=== PATIENT | male | born 1995 ===

== ENCOUNTER 2019-03-13 16:21 | Emergency (ER) | payer OTHER ==
--- NOTE | 2019-03-13 16:35 | EDM.PDOC ---
ED HPI GENERAL MEDICAL PROBLEM - General Chief Complaint: Lower Extremity Injury/Pain Stated Complaint: L LEG INJURY Time Seen by Provider: 03/13/19 16:29 Source of Information: Reports: Patient History Limitations: Reports: No Limitations - History of Present Illness INITIAL COMMENTS - FREE TEXT/NARRATIVE: Patient is unfortunate 24-year-old male who presents emergency Department today with complaint of left leg pain. Patient reports he was in his normal state of health until 3 days ago when he was walking and fell forward onto the ground and he hit his left peng on a 2 x 4. Patient reports he opened his skin at that time and has had bruising and swelling from the site down to his ankle. Patient reports pain is worse with ambulation or palpation improves with rest does not alleviate. Distal neurovascular is intact. Patient's last tetanus shot was last year Left Lower Leg Pain Score (Numeric/FACES): 2 - Related Data Allergies Allergy/AdvReac Type Severity Reaction Status Date / Time No Known Allergies Allergy Verified 03/13/19 16:36 Home Meds: Home Meds cephALEXin [Keflex] 500 mg PO QID #28 cap 03/13/19 [Rx] Review of Systems - Review of Systems Review Of Systems: See Below Constitutional: Denies: Chills, Fever Musculoskeletal: Reports: Leg Pain ED EXAM, GENERAL - Physical Exam Exam: See Below Exam Limited By: No Limitations General Appearance: Alert, WD/WN, Mild Distress Head: Atraumatic, Normocephalic Respiratory/Chest: No Respiratory Distress, Lungs Clear, Normal Breath Sounds, No Accessory Muscle Use, Chest Non-Tender Cardiovascular: Normal Peripheral Pulses, Regular Rate, Rhythm, No Edema, No Gallop, No JVD, No Murmur, No Rub GI/Abdominal: Normal Bowel Sounds, Soft, Non-Tender, No Organomegaly, No Distention, No Abnormal Bruit, No Mass Back Exam: Normal Inspection, Full Range of Motion, NT Extremities: Other (She has moderate purplish yellow ecchymosis from his mid anterior tibia to his medial and lateral malleolus on the left lower extremity, patient has a 2.5 cm laceration to the mid anterior tibia on the left side partial dermis thickness no active bleeding no foreign body noted, distal neurovascular is intact) Skin Exam: Warm, Dry Course - Vital Signs Last Recorded V/S: Last Vital Signs Temp 98.5 F 03/13/19 16:33 Pulse 73 03/13/19 16:33 Resp 20 03/13/19 16:33 BP 121/78 03/13/19 16:33 Pulse Ox 100 03/13/19 16:33 - Orders/Labs/Meds Orders: Active Orders 24 hr Category Date Time Status Tibia Fibula Lt [CR] Stat Exams 03/13/19 16:33 Taken - Re-Assessments/Exams Free Text/Narrative Re-Assessment/Exam: 03/13/19 17:05 Tib-fib interpreted by me NAD Departure - Departure Time of Disposition: 17:06 Disposition: Home, Self-Care 01 Condition: Good Clinical Impression: Laceration without foreign body, left lower leg, initial encounter Contusion of left lower leg Qualifiers: Encounter type: initial encounter Qualified Code(s): S80.12XA - Contusion of left lower leg, initial encounter - Discharge Information Prescriptions: cephALEXin [Keflex] 500 mg PO QID #28 cap Referrals: PCP,None [Primary Care Provider] - Forms: ED Department Discharge Additional Instructions: Home, rest, keep wound clean and dry, clean wound daily apply Neosporin bandage , return as needed for worsening condition Sepsis Event Note - Focused Exam Vital Signs: Vital Signs Temp Pulse Resp BP Pulse Ox 03/13/19 16:33 98.5 F 73 20 121/78 100 Date Exam was Performed: 03/13/19 Time Exam was Performed: 17:05 - My Orders Last 24 Hours: My Active Orders 03/13/19 16:33 Tibia Fibula Lt [CR] Stat - Assessment/Plan Last 24 Hours: My Active Orders 03/13/19 16:33 Tibia Fibula Lt [CR] Stat
[2019-03-13] MEDS ORDERED: Cephalexin 500 MG Cap PO ONE (17:08)
--- NOTE | 2019-03-13 17:37 | CR ---
Left tibia and fibula: 2 views left tibia and fibula were obtained. Comparison: No previous study. No fracture or other bony abnormality is identified. Impression: 1. Nothing acute is appreciated on 2 view left tibia and fibula exam. Diagnostic code #1 This report was dictated in [place] Standard Time
== END 2019-03-13 17:27 | disposition home or self-care (01) ==
LOC: JD.ED 16:21
DX: S81.812A Laceration without foreign body, left lower leg, initial encounter (principal); W01.198A Fall on same level from slipping, tripping and stumbling with subsequent striking against other object, initial encounter
CPT/HCPCS: 73590; 99283; A9270; 99282